=== PATIENT | male | born 1935 | race Caucasian/White ===

== ENCOUNTER → 2017-02-05 | Outpatient (CLI) | payer MEDICARE ==
[~2017-02-05] MED LIST: ACETAMINOPHEN500 M1 PO; ASPIRIN325 MG PO; BACTROBAN N1 GM/TUBE TOP; COLACE100 MG PO; GENTAMICIN TOP; GENTAMICIN15 GM TOP; HYTRIN **IA 9/2 MG PO; LASIX80 MG PO; LEVOTHROID (S112 MCG PO; LEVOTHYROXINE100 MCG PO; LEXAPRO10 MG PO; LIPITOR40 MG PO; LOVENOX 3030 MG/0.3 SUB-Q; NORCO 5-325 MG1 TAB PO; OCUVITE EYE +1 EACH PO; PRILOSEC20 MG PO; PROSCAR5 MG PO; RENVELA800 MG PO; SPIRIVA18 MCG INH; SYMBICORT 16010.2 GM INH; THERA-VITE W/ B1 TAB PO; TOPROL XL25 MG PO; VITAMIN D-32000 UNIT PO
[2017-02-05 16:57] LABS: BASOPHIL % 0.3 %; EOSINOPHIL # 0.2 K/uL (0.0-0.5); EOSINOPHIL % 3.3 %; HEMATOCRIT 26.3 % (33.0-50.0); HEMOGLOBIN 8.3 g/dL (11.0-16.0); IMMATURE GRANULOCYTE % 0.3 %; LYMPHOCYTE # 1.5 K/uL (0.8-4.0); LYMPHOCYTE % 24.9 %; MCH 32.3 pg (27.0-34.0); MCHC 31.6 gm/dL (32.0-36.5); MCV 102.3 fl (83.0-98.0); MONOCYTE # 0.7 K/uL (0.0-1.0); MONOCYTE % 11.2 %; MPV 9.8 fl (9.4-12.4); NEUTROPHIL # (ANC) 3.6 K/uL (1.4-9.0); NRBC % 0 /100WBC (0-0.00); PLATELET COUNT 210 K/uL (150-450); RBC 2.57 M/uL (3.50-5.50); RDW-CV 13.6 % (11.9-14.6); WBC 6.1 K/uL (4.0-11.0)
== END | disposition disaster alternative care site (69) ==
LOC: GLAB 16:39
PROVIDERS: Family Medicine
DX: D64.9 Anemia, unspecified (principal)